=== PATIENT | male | born 1965 | race Caucasian/White ===

== ENCOUNTER → 2016-05-19 | Outpatient (CLI) | payer OTHER ==
[~2016-05-19] MED LIST: ABILIFY IV; ADVIN25/60 INH; ALBUAER2 INH; ARIP1INJ INJ; ASPI81TA28 PO; ATR25 PO; ATV5X; CLR10 PO; ERGO1CAP41 PO; FLUT0.15; FLVHFA44 INH; HYDR-3126 PO; IBUP-1050 PO; LORA-741 PO; MELO7.5T5 PO; ONDA4TAB46 PO; PREG100C PO; PREG1CAP70 PO; TAMS0.4C38 PO; UMEC1AER INH; VNTHFA/IN INH
--- NOTE | 2016-05-19 11:29 | DIAGNOSTIC IMAGING REPORT ---
TESTICULAR ULTRASOUND HISTORY: N50.812 Pain in left [id number] Groin pain COMPARISON: None. FINDINGS: Right testis: 4.0 x 2.4 x 2.7 cm. There are no intratesticular masses. Normal color flow. No hydrocele. The epididymis is unremarkable. There is a 1 cm scrotolith. Left testis: 4.3 x 2.8 x 2.5 cm. There are no intratesticular masses. Normal color flow. No hydrocele. A 2 mm epididymal head cyst. IMPRESSION: 1. Normal bilateral testes. 2. A 1 cm right sided scrotolith. 3. A 2 mm left epididymal head cyst. Electronically signed by: Delon Edge M.D. 05/19/2016 11:28 AM Dictated Date/Time: 05/19/2016 11:26 AM
== END | disposition home or self-care (01) ==
LOC: C.ULTR 10:30
PROVIDERS: ATTEND Internal Medicine
DX: N50.812 Left testicular pain (principal); R10.30 Lower abdominal pain, unspecified

== ENCOUNTER 2016-08-23 14:03 | Emergency (ER) | payer OTHER ==
[~2016-08-23] VITALS: Ht 177.8 cm; Wt 86.2 kg
[~2016-08-23 14:03] MED LIST changes: -ARIP1INJ INJ; -ASPI81TA28 PO; -ATR25 PO; -ATV5X; -ERGO1CAP41 PO; -FLUT0.15; -FLVHFA44 INH; -LORA-741 PO; -MELO7.5T5 PO; -PREG1CAP70 PO; -UMEC1AER INH; -VNTHFA/IN INH
[2016-08-23 14:06] VITALS: TEMP 36.4; Ht 177.8 cm; Wt 86.2 kg
[2016-08-23] MEDS ORDERED: LORAZEPAM 2 MG/ML 1 ML VIAL IV STA (14:18)
[2016-08-23] MEDS ORDERED: ASPIRIN 81 MG CHEW PO STA (14:18)
[2016-08-23 14:44] LABS: BASO ABS # 0.11 K/uL (0-0.2); COMPLETE YES; EOS % 2.1 %; HEMATOCRIT 51.8 % (42-52); IG% 0.2 %; LYMPH % 24.6 %; LYMPH ABS # 2.79 K/uL (1.2-3.4); MEAN CELL VOLUME 91.8 fL (80-100); MEAN CORPUSCULAR HEMOGLOBIN 32.6 pg (25-34); MEAN CORPUSCULAR HGB CONC 35.5 g/dl (32-36); MEAN PLATELET VOLUME 11.6 fL (7.4-10.4); MONO % 4.8 %; NEUT % 67.3 %; PLATELET COUNT 231 K/uL (130-400); RED BLOOD COUNT 5.64 M/uL (4.7-6.1); WHITE BLOOD COUNT 11.36 K/uL (4.8-10.8)
--- NOTE | 2016-08-23 14:47 | DIAGNOSTIC IMAGING REPORT ---
SINGLE VIEW CHEST CLINICAL HISTORY: Atypical chest pain. FINDINGS: An AP, portable, upright chest radiograph is compared to study dated 10/02/2015. The examination is degraded by portable technique and patient rotation. The cardiomediastinal silhouette is unremarkable. Left basilar atelectasis is similar to previous. Chronic interstitial thickening is similar to previous. The lungs and pleural spaces are otherwise clear. No pneumothorax is seen. The bony thorax is grossly intact. A bone island is again noted in the left posterior fifth rib. IMPRESSION: No acute cardiopulmonary abnormality and no significant change from 10/02/2015. Electronically signed by: Joaquin Penaloza M.D. 08/23/2016 2:46 PM Dictated Date/Time: 08/23/2016 2:44 PM
[2016-08-23 14:53] LABS: PARTIAL THROMBOPLASTIN RATIO 1.1; PROTHROMBIN TIME (PATIENT) 10.7 SECONDS (9.0-12.0)
[2016-08-23 15:04] LABS: ALT/SGPT 68 U/L (12-78); AST/SGOT 31 U/L (15-37); BLOOD UREA NITROGEN 6 mg/dl (7-18); CALCIUM 8.8 mg/dl (8.5-10.1); CARBON DIOXIDE 28 mmol/L (21-32); CHLORIDE 106 mmol/L (98-107); GLUCOSE 110 mg/dl (70-99); POTASSIUM 3.6 mmol/L (3.5-5.1); SODIUM 142 mmol/L (136-145)
--- NOTE | 2016-08-23 15:08 | DIAGNOSTIC IMAGING REPORT ---
ULTRASOUND LEFT LOWER EXTREMITY VENOUS CLINICAL HISTORY: Left leg pain. COMPARISON STUDY: No priors. TECHNIQUE: Real-time, grayscale, and color Doppler sonography of the deep veins of the left lower extremity was performed from the inguinal crease to the calf. Compression and augmentation were utilized. FINDINGS: There is no sonographic evidence of deep venous thrombosis identified in the left lower extremity. The common femoral, superficial femoral, and popliteal veins are patent and normally compressible. The greater saphenous vein and the profunda femoris vein at the junction with the common femoral vein are clear. The visualized calf veins are patent. No sonographic abnormality is identified in the left leg at the site of interest specified by the patient. IMPRESSION: 1. There is no sonographic evidence of deep venous thrombosis identified in the left lower extremity. 2. No sonographic abnormality is identified in the left upper leg at the indicated site of interest. Electronically signed by: Joaquin Penaloza M.D. 08/23/2016 3:07 PM Dictated Date/Time: 08/23/2016 3:05 PM
[2016-08-23 15:09] LABS: ALKALINE PHOSPHATASE 105 U/L (45-117); CKMB/CK RATIO 1.2 (0-3.0)
[2016-08-23] MEDS ORDERED: ARIP1INJ INJ (15:15)
[2016-08-23 15:39] VITALS: BP 126/84; PULSE 68; O2SAT 97
--- NOTE | 2016-08-23 19:09 | EMERGENCY ROOM VISIT NOTE ---
History Report prepared by Hugo: Laura Remy Under the Supervision of: Dr. Clive Tran D.O. First contact with patient: 14:10 Chief Complaint: CARDIAC ASSESSMENT Stated Complaint: CHEST TIGHTNESS, LEFT UPPER LEG PAIN, SOB, ANXIETY History of Present Illness The patient is a 51 year old male who presents to the Emergency Room with complaints of an episode of chest pain starting this morning. He currently rates his pain as a 4/10 in severity. The patient states that he started experiencing left leg pain a week ago and it hasn't gotten better. The patient notes that he lays on that side often. He denies having any trauma occur. He complains that it feels swollen. The patient notes a rash on his chest that he states started a week ago and feels sore. He notes that his chest pain does not radiate and that he was afraid to fall asleep last night because he couldn't stop coughing. He reports being short of breath. The patient states that he is also experiencing a higher level of anxiety than normal and has taken medications to help with no relief. He complains of being dizzy as well. The patient notes that he is a schizophrenic. He states that he has not seen anyone else for this today and came to the ED because it seemed to worsen. Source of History: patient Onset: this morning Position: chest Symptom Intensity: 4/10 Timing: other (episode) Associated Symptoms: + SOB, + cough, + rash Note: The patient complains of dizziness, left leg pain and anxiety. Review of Systems See HPI for pertinent positives & negatives. A total of 10 systems reviewed and were otherwise negative. Past Medical & Surgical Medical Problems: (1) Asthma (2) Auditory hallucinations (3) Benzodiazepine withdrawal (4) Cannabis type drug dependence (5) Chronic paranoid schizophrenia (6) Depression with suicidal ideation (7) Fibromyalgia (8) Homicidal ideations (9) Paranoid schizophrenia (10) Rheumatoid arthritis (11) Schizophrenia Surgical Problems: (1) H/O cystoscopy Social History Problems: (1) Bilateral foot pain (2) Constipation (3) Constipation (4) Dehydration (5) Hepatitis C (6) Homicidal ideations (7) Jaw pain (8) Jaw pain (9) Leukocytosis (10) Leukocytosis (11) Vomiting (12) Vomiting (13) Vomiting (14) Vomiting Family History Depression Shiv's chorea Social History Smoking Status: Current Every Day Smoker Alcohol Use: none Drug Use: heroin, marijuana, other Marital Status: single Housing Status: lives with family Occupation Status: disabled Current/Historical Medications Scheduled Albuterol Hfa (Ventolin Hfa), 2 PUFFS INH Q4 Aripiprazole (Abilify Maintena), 400 MG INJ MONTHLY Aspirin (Aspirin Ec), 81 MG PO DAILY Fluticasone Propionate (Flovent Hfa), 2 PUFFS INH BID Fluticasone Propionate (Nasal) (Flonase Allergy Relief), 2 SPRAY NA QAM Hydroxyzine Hcl (Atarax), 10 MG PO QID Loratadine (Claritin), 10 MG PO DAILY Lorazepam (Ativan), 0.5 MG PO BID Pregabalin (Lyrica), 150 MG PO TID Umeclidinium-Vilanterol (Anoro Ellipta 62.5-25 Mcg/INH), 1 PUFF INH DAILY Scheduled PRN Ibuprofen (Advil), 800 MG PO Q4 PRN for Pain Allergies Coded Allergies: Molds & Smuts (Verified Allergy, Intermediate, NASAL STUFFINESS,EYES WATER ,BREATHING GETS WORSE, 08/23/16) POLLEN (Verified Allergy, Intermediate, WATERY EYES,COUGHING,INCREASED REPIRATORY PROBLEMS, 08/23/16) Cat Dander (Verified Allergy, Unknown, unk, 08/23/16) NO KNOWN DRUG ALLERGIES (Verified Allergy, Unknown, ., 08/23/16) Physical Exam Vital Signs Date Time Temp Pulse Resp B/P Pulse Ox O2 Delivery O2 Flow Rate FiO2 08/23/16 15:39 68 18 126/84 97 Room Air 08/23/16 15:26 85 08/23/16 15:19 79 18 114/76 98 Room Air 08/23/16 14:06 36.4 91 20 154/93 95 Room Air Physical Exam GENERAL: Patient is awake, alert, and in no acute distress. Patient is resting comfortably and showing no signs of anxiety EYES: The conjunctivae are clear. The pupils are round and reactive. EARS, NOSE, MOUTH AND THROAT: The nose is without any evidence of any deformity. Mucous membranes are moist tongue is midline NECK: The neck is nontender and supple. RESPIRATORY: Normal respiratory effort is noted there is no evidence of wheezing rhonchi or rales CARDIOVASCULAR: Regular rate and rhythm noted there no murmurs rubs or gallops normal S1 normal S2 GASTROINTESTINAL: The abdomen is soft. Bowel sounds are present in all quadrants. Abdomen is nontender MUSCULOSKELETAL/EXTREMITIES: There is no evidence of gross deformity full range of motion is noted in the hips and shoulders. Tenderness over lateral left thigh. No swelling or ecchymosis noted. ROM is still intact. SKIN: There is no obvious evidence of any rash. There are no petechiae, pallor or cyanosis noted. NEUROLOGIC: Patient is awake alert and oriented x3 strength is symmetric patellar reflexes are 2+ bilaterally Medical Decision & Procedures ER Provider Diagnostic Interpretation: Radiology results as stated below per my review and radiologist interpretation: SINGLE VIEW CHEST CLINICAL HISTORY: Atypical chest pain. FINDINGS: An AP, portable, upright chest radiograph is compared to study dated 10/02/2015. The examination is degraded by portable technique and patient rotation. The cardiomediastinal silhouette is unremarkable. Left basilar atelectasis is similar to previous. Chronic interstitial thickening is similar to previous. The lungs and pleural spaces are otherwise clear. No pneumothorax is seen. The bony thorax is grossly intact. A bone island is again noted in the left posterior fifth rib. IMPRESSION: No acute cardiopulmonary abnormality and no significant change from 10/02/2015. Electronically signed by: Joaquin Penaloza M.D. 08/23/2016 2:46 PM Dictated Date/Time: 08/23/2016 2:44 PM ULTRASOUND LEFT LOWER EXTREMITY VENOUS CLINICAL HISTORY: Left leg pain. COMPARISON STUDY: No priors. TECHNIQUE: Real-time, grayscale, and color Doppler sonography of the deep veins of the left lower extremity was performed from the inguinal crease to the calf. Compression and augmentation were utilized. FINDINGS: There is no sonographic evidence of deep venous thrombosis identified in the left lower extremity. The common femoral, superficial femoral, and popliteal veins are patent and normally compressible. The greater saphenous vein and the profunda femoris vein at the junction with the common femoral vein are clear. The visualized calf veins are patent. No sonographic abnormality is identified in the left leg at the site of interest specified by the patient. IMPRESSION: 1. There is no sonographic evidence of deep venous thrombosis identified in the left lower extremity. 2. No sonographic abnormality is identified in the left upper leg at the indicated site of interest. Electronically signed by: Joaquin Penaloza M.D. 08/23/2016 3:07 PM Dictated Date/Time: 08/23/2016 3:05 PM Laboratory Results 08/23/16 14:20 Red Blood Count 5.64, Mean Corpuscular Volume 91.8, Mean Corpuscular Hemoglobin 32.6, Mean Corpuscular Hemoglobin Concent 35.5, Mean Platelet Volume 11.6, Neutrophils (%) (Auto) 67.3, Lymphocytes (%) (Auto) 24.6, Monocytes (%) (Auto) 4.8, Eosinophils (%) (Auto) 2.1, Basophils (%) (Auto) 1.0, Neutrophils # (Auto) 7.65, Lymphocytes # (Auto) 2.79, Monocytes # (Auto) 0.55, Eosinophils # (Auto) 0.24, Basophils # (Auto) 0.11 08/23/16 14:20 Test 08/23/16 14:20 08/23/16 14:30 White Blood Count 11.36 K/uL (4.8-10.8) Red Blood Count 5.64 M/uL (4.7-6.1) Hemoglobin 18.4 g/dL (14.0-18.0) Hematocrit 51.8 % (42-52) Mean Corpuscular Volume 91.8 fL (80-100) Mean Corpuscular Hemoglobin 32.6 pg (25-34) Mean Corpuscular Hemoglobin Concent 35.5 g/dl (32-36) Platelet Count 231 K/uL (130-400) Mean Platelet Volume 11.6 fL (7.4-10.4) Neutrophils (%) (Auto) 67.3 % Lymphocytes (%) (Auto) 24.6 % Monocytes (%) (Auto) 4.8 % Eosinophils (%) (Auto) 2.1 % Basophils (%) (Auto) 1.0 % Neutrophils # (Auto) 7.65 K/uL (1.4-6.5) Lymphocytes # (Auto) 2.79 K/uL (1.2-3.4) Monocytes # (Auto) 0.55 K/uL (0.11-0.59) Eosinophils # (Auto) 0.24 K/uL (0-0.5) Basophils # (Auto) 0.11 K/uL (0-0.2) RDW Standard Deviation 45.4 fL (36.4-46.3) RDW Coefficient of Variation 13.4 % (11.5-14.5) Immature Granulocyte % (Auto) 0.2 % Immature Granulocyte # (Auto) 0.02 K/uL (0.00-0.02) Prothrombin Time 10.7 SECONDS (9.0-12.0) Prothromb Time International Ratio 1.0 (0.9-1.1) Activated Partial Thromboplast Time 28.3 SECONDS (21.0-31.0) Partial Thromboplastin Ratio 1.1 Anion Gap 8.0 mmol/L (3-11) Est Creatinine Clear Calc Drug Dose 89.2 ml/min Estimated GFR () 99.8 Estimated GFR (Non- 86.2 BUN/Creatinine Ratio 6.0 (10-20) Calcium Level 8.8 mg/dl (8.5-10.1) Total Bilirubin 0.4 mg/dl (0.2-1) Direct Bilirubin < 0.1 mg/dl (0-0.2) Aspartate Amino Transf (AST/SGOT) 31 U/L (15-37) Alanine Aminotransferase (ALT/SGPT) 68 U/L (12-78) Alkaline Phosphatase 105 U/L (45-117) Total Creatine Kinase 82 U/L (39-308) Creatine Kinase MB 1.0 ng/ml (0.5-3.6) Creatine Kinase MB Ratio 1.2 (0-3.0) Troponin I < 0.015 ng/ml (0-0.045) Total Protein 7.6 gm/dl (6.4-8.2) Albumin 3.9 gm/dl (3.4-5.0) Lipase 148 U/L (73-393) Bedside D-Dimer 57 ng/mlFEU (0-450) Laboratory results per my review. Medications Administered Medications (Trade) Dose Ordered Sig/Raeann Route Start Time Stop Time Status Last Admin Dose Admin Aspirin (Aspirin Chew) 324 mg NOW STAT PO 08/23/16 14:18 08/23/16 14:20 DC 08/23/16 14:25 324 MG Lorazepam (Ativan Inj) 1 mg NOW STAT IV 08/23/16 14:18 08/23/16 14:20 DC 08/23/16 14:26 1 MG ECG Indication: SOB/dyspnea Rate (beats per minute): 89 Rhythm: normal sinus Findings: no ectopy, other (no ST abnormalities) Comparison ECG Date: 10/01 Change: no significant change ED Course 1413: The patient was evaluated in room C4. A complete history and physical examination were performed. 1418: Ordered Ativan Inj 1 mg IV, Aspirin 324 mg PO. 1520: Upon reevaluation, the patient is resting comfortably. I discussed results and treatment plan with him. The patient verbalizes agreement and understanding. The patient will be discharged. Medical Decision Differential diagnosis: Etiologies such as cardiac ischemia, aortic dissection, pulmonary embolism, pneumonia, pneumothorax, musculoskeletal, infections, pericarditis, myocarditis , esophageal rupture, gastrointestinal, as well as others were entertained. Medication Reconciliation: I attest that I have personally reviewed the patient' s current medications list. Blood Pressure Screening: Patient was found to have an elevated blood pressure and was referred to their primary doctor for recheck and further treatment. The patient is a 51-year-old male who presented to the emergency department for an evaluation of ongoing chest pain since yesterday. The patient's EKG did not show any acute change from previous. His cardiac biomarkers were negative despite ongoing pain. I discussed patient's laboratory and radiographic studies with him. I also discussed the limitations of the emergency department workup for chest pain with him. He also complained of left leg pain but Doppler did not reveal any signs of venous thromboembolic disease. The patient was encouraged to rest and avoid any strenuous activity. He was encouraged to continue all medications as prescribed and follow-up with his family doctor this week for reevaluation. He was also encouraged to return to the emergency department immediately if symptoms change worsen or the need arises. Impression Primary Impression: Chest pain Additional Impression: Acute anxiety Scribe Attestation The scribe's documentation has been prepared under my direction and personally reviewed by me in its entirety. I confirm that the note above accurately reflects all work, treatment, procedures, and medical decision making performed by me. Departure Information Dispostion Home / Self-Care Referrals Trisha Kerr M.D. (PCP) Forms IMPORTANT VISIT INFORMATION, Work Instructions Patient Instructions My [facility] Additional Instructions Rest and avoid any strenuous activity. Continue all medications as prescribed. Call your family this week to schedule a follow-up appointment. You may require a stress test or further studies to evaluate the cause your symptoms. Return to emergency department immediately if symptoms change worsen or the need arises. Your blood pressure was elevated in the emergency department today. Your blood pressure was mildly elevated in the emergency department today. While this is nonspecific it may require further treatment. Be sure to have your blood pressure rechecked with your family this week. Problem Qualifiers Primary Impression: Chest pain Chest pain type: unspecified Qualified Codes: R07.9 - Chest pain, unspecified
[2017-02-20] MEDS ORDERED: ERGO500011 PO
[2017-02-20] MEDS ORDERED: PREG1CAP70 PO (00:01)
[2017-02-20] MEDS ORDERED: CLR10 PO (00:03)
[2017-02-20] MEDS ORDERED: LORA-741 PO (09:15)
[2017-02-20] MEDS ORDERED: ASPI81TA28 PO (12:17)
[2017-02-20] MEDS ORDERED: FLUT0.15 (12:58)
[2017-02-20] MEDS ORDERED: UMEC1AER INH (15:15)
[2017-02-20] MEDS ORDERED: FLVHFA44 INH (15:15)
[2017-02-20] MEDS ORDERED: VNTHFA/IN INH (15:16)
== END 2016-08-23 15:48 | disposition home or self-care (01) ==
LOC: C.EDB 14:05 → C.EDC 15:48
DX: R07.9 Chest pain, unspecified (principal); F41.9 Anxiety disorder, unspecified; F32.9 Major depressive disorder, single episode, unspecified; M06.9 Rheumatoid arthritis, unspecified; F20.9 Schizophrenia, unspecified; B19.20 Unspecified viral hepatitis C without hepatic coma; J45.909 Unspecified asthma, uncomplicated; F17.200 Nicotine dependence, unspecified, uncomplicated; Z79.82 Long term (current) use of aspirin; Z79.899 Other long term (current) drug therapy; Z91.09 Other allergy status, other than to drugs and biological substances; Z81.8 Family history of other mental and behavioral disorders; Z84.89 Family history of other specified conditions

== ENCOUNTER → 2016-09-26 | Outpatient (CLI) | payer OTHER ==
[~2016-09-26] MED LIST changes: -ABILIFY IV; -ADVIN25/60 INH; -ALBUAER2 INH; +ARIP1INJ INJ; +ASPI81TA28 PO; +ATR25 PO; +ATV5X; +ERGO1CAP41 PO; +FLUT0.15; +FLVHFA44 INH; +LORA-741 PO; +MELO7.5T5 PO; -ONDA4TAB46 PO; +PREG1CAP70 PO; -TAMS0.4C38 PO; +UMEC1AER INH; +VNTHFA/IN INH
[2016-09-26 12:33] LABS: BASO % 0.8 %; BASO ABS # 0.07 K/uL (0-0.2); COMPLETE YES; EOS % 3.7 %; HEMATOCRIT 50.2 % (42-52); IG% 0.2 %; LYMPH % 31.7 %; LYMPH ABS # 2.65 K/uL (1.2-3.4); MEAN CELL VOLUME 92.6 fL (80-100); MEAN CORPUSCULAR HEMOGLOBIN 31.7 pg (25-34); MEAN CORPUSCULAR HGB CONC 34.3 g/dl (32-36); MEAN PLATELET VOLUME 12.1 fL (7.4-10.4); MONO % 5.1 %; NEUT % 58.5 %; PLATELET COUNT 224 K/uL (130-400); RED BLOOD COUNT 5.42 M/uL (4.7-6.1); WHITE BLOOD COUNT 8.37 K/uL (4.8-10.8)
[2016-09-26 12:54] LABS: ESTIMATED AVERAGE GLUCOSE 117 mg/dl; HA1C FLAG Normal (Normal)
[2016-09-26 12:57] LABS: ALT/SGPT 78 U/L (12-78); BLOOD UREA NITROGEN 5 mg/dl (7-18); BUN/CREATININE RATIO 4.8 (10-20); CALCIUM 9.6 mg/dl (8.5-10.1); CARBON DIOXIDE 30 mmol/L (21-32); CHLORIDE 108 mmol/L (98-107); CHOLESTEROL 141 mg/dl (0-200); CREATININE 0.94 mg/dl (0.60-1.40); GLUCOSE 89 mg/dl (70-99); POTASSIUM 4.6 mmol/L (3.5-5.1); SODIUM 142 mmol/L (136-145); TRIGLYCERIDES 124 mg/dl (0-150); VERY LOW DENSITY LIPOPROT CALC 25 mg/dl
[2016-09-26 13:05] LABS: ALB/GLOB RATIO 1.1 (0.9-2); ALKALINE PHOSPHATASE 93 U/L (45-117); AST/SGOT 41 U/L (15-37); CHOLESTEROL/HDL RATIO 3.1; HDL CHOLESTEROL 46 mg/dl; LDL CHOLESTEROL CALCULATED 70 mg/dl; THYROID STIMULATING HORMONE 0.407 uIu/ml (0.300-4.500)
== END | disposition home or self-care (01) ==
LOC: C.LABBFT 10:42
PROVIDERS: ATTEND Urology
DX: Z79.899 Other long term (current) drug therapy (principal); Z12.5 Encounter for screening for malignant neoplasm of prostate; G89.4 Chronic pain syndrome; M19.90 Unspecified osteoarthritis, unspecified site; B18.2 Chronic viral hepatitis C; E55.9 Vitamin D deficiency, unspecified

== ENCOUNTER 2016-10-25 23:18 | Emergency (ER) | payer OTHER ==
[~2016-10-25] VITALS: Ht 177.8 cm; Wt 88.1 kg
[~2016-10-25 23:18] MED LIST changes: -ATR25 PO; -ATV5X; -ERGO1CAP41 PO; -MELO7.5T5 PO; -PREG1CAP70 PO
[2016-10-25 23:23] VITALS: TEMP 36.6; Ht 177.8 cm; Wt 88.1 kg
[2016-10-25] MEDS ORDERED: LORAZEPAM 1 MG TAB PO STA (23:38)
[2016-10-25] MEDS ORDERED: MELO7.5T5 PO (23:57)
[2016-10-25] MEDS ORDERED: ATV5X (23:58)
[2016-10-26] MEDS ORDERED: ERGO1CAP41 PO
[2016-10-26] MEDS ORDERED: PREG1CAP70 PO (00:01)
[2016-10-26] MEDS ORDERED: ATR25 PO (00:02)
[2016-10-26] MEDS ORDERED: CLR10 PO (00:03)
[2016-10-26] MEDS ORDERED: RISPERIDONE 1 MG TAB PO STA (00:26)
--- NOTE | 2016-10-26 01:37 | EMERGENCY ROOM VISIT NOTE ---
History Report prepared by Hugo: Adelso Navarrete Under the Supervision of: Dr. John Arroyo D.O. First contact with patient: 23:33 Chief Complaint: PSYCHIATRIC PROBLEMS Stated Complaint: MENTAL HEALTH EVAL History of Present Illness The patient is a 51 year old male who presents to the Emergency Room with complaints of persistent psychiatric problems beginning today. His problems include anxiety and "delusions". He states that he has been having delusions of grandeur for the past hour and states "I think the world believes I'm a god". The patient has taken Ativan for his anxiety. He denies feeling suicidal or homicidal. He denies taking increased dosage of his medications. The patient is on Abilify and is scheduled for his next injection next week. Source of History: patient Onset: Today Quality: other (psychiatric problems) Timing: other (persistent) Review of Systems See HPI for pertinent positives and negatives. A total of ten systems were reviewed and were otherwise negative. Past Medical & Surgical Medical Problems: (1) Asthma (2) Auditory hallucinations (3) Benzodiazepine withdrawal (4) Cannabis type drug dependence (5) Chronic paranoid schizophrenia (6) Depression with suicidal ideation (7) Fibromyalgia (8) Homicidal ideations (9) Paranoid schizophrenia (10) Rheumatoid arthritis (11) Schizophrenia Surgical Problems: (1) H/O cystoscopy Social History Problems: (1) Bilateral foot pain (2) Constipation (3) Constipation (4) Dehydration (5) Hepatitis C (6) Homicidal ideations (7) Jaw pain (8) Jaw pain (9) Leukocytosis (10) Leukocytosis (11) Vomiting (12) Vomiting (13) Vomiting (14) Vomiting Family History Depression [place]'s chorea Social History Smoking Status: Current Every Day Smoker Alcohol Use: none Drug Use: heroin, marijuana, other Marital Status: single Housing Status: lives with family Occupation Status: disabled Current/Historical Medications Scheduled Aripiprazole (Abilify Maintena), 400 MG INJ MONTHLY Aspirin (Aspirin Ec), 81 MG PO DAILY Ergocalciferol (Vitamin D 16193 Unit), 50,000 UNIT PO WK Fluticasone Propionate (Flovent Hfa), 1 PUFFS INH BID Fluticasone Propionate (Nasal) (Flonase Allergy Relief), 2 SPRAY NA QAM Meloxicam (Mobic), 7.5 MG PO DAILY Pregabalin (Lyrica), 150 MG PO TID Umeclidinium-Vilanterol (Anoro Ellipta 62.5-25 Mcg/INH), 1 PUFF INH DAILY Scheduled PRN Albuterol Hfa (Ventolin Hfa), 2 PUFFS INH Q4 PRN for SOB/Wheezing Hydroxyzine HCl (Hydroxyzine HCl), 25 MG PO TID PRN for Anxiety Loratadine (Claritin), 10 MG PO DAILY PRN for allergies Lorazepam (Ativan), 0.5 MG PO AMHS PRN for Anxiety Allergies Coded Allergies: Molds & Smuts (Verified Allergy, Intermediate, NASAL STUFFINESS,EYES WATER ,BREATHING GETS WORSE, 10/25/16) POLLEN (Verified Allergy, Intermediate, WATERY EYES,COUGHING,INCREASED REPIRATORY PROBLEMS, 10/25/16) Cat Dander (Verified Allergy, Unknown, unk, 10/25/16) NO KNOWN DRUG ALLERGIES (Verified Allergy, Unknown, ., 10/25/16) Physical Exam Vital Signs Date Time Temp Pulse Resp B/P (MAP) Pulse Ox O2 Delivery O2 Flow Rate FiO2 10/25/16 23:23 36.6 78 18 166/91 94 Room Air Physical Exam GENERAL: Awake, alert, well-appearing, in no distress HENT: Normocephalic, atraumatic. Oropharynx unremarkable. EYES: Normal conjunctiva. Sclera non-icteric. NECK: Supple. No nuchal rigidity. FROM. No JVD. RESPIRATORY: Clear to auscultation. CARDIAC: Regular rate, normal rhythm. Extremities warm and well perfused. Pulses equal. ABDOMEN: Soft, non-distended. No tenderness to palpation. No rebound or guarding. No masses. RECTAL: Deferred. MUSCULOSKELETAL: Chest examination reveals no tenderness. The back is symmetrical on inspection without obvious abnormality. There is no CVA tenderness to palpation. No joint edema. LOWER EXTREMITIES: Calves are equal size bilaterally and non-tender. No edema. No discoloration. NEURO: Normal sensorium. No sensory or motor deficits noted. SKIN: No rash or jaundice noted. PSYCH: Anxious. Delusional. Not suicidal. Medical Decision & Procedures Medications Administered Medications (Trade) Dose Ordered Sig/Raeann Route Start Time Stop Time Status Last Admin Dose Admin Lorazepam (Ativan Tab) 1 mg NOW STAT PO 10/25/16 23:38 10/25/16 23:39 DC 10/25/16 23:45 1 MG Risperidone (Risperdal Tab) 1 mg NOW STAT PO 10/26/16 00:26 10/26/16 00:27 DC 10/26/16 00:30 1 MG ED Course 2335: The patient was evaluated in room A7. A complete history and physical exam was performed. 2338: Ordered Ativan Tab 1 mg PO. 0026: Ordered Risperdal Tab 1 mg PO. 0135: I reevaluated the patient. Discussed results and discharge instructions: he verbalized understanding and agreement. The patient is ready for discharge. Medical Decision Differential diagnosis: Etiologies such as mood disorder, infection, hypoglycemia, electrolyte abnormalities, cardiac sources, intracerebral event, toxicologic, neurologic, as well as others were entertained. Patient resting in no distress patient was treated for his anxiety is much improved. Patient has no suicidal or homicidal ideations at this time is stable for discharge Impression Primary Impression: Anxiety Scribe Attestation The scribe's documentation has been prepared under my direction and personally reviewed by me in its entirety. I confirm that the note above accurately reflects all work, treatment, procedures, and medical decision making performed by me. Departure Information Dispostion Home / Self-Care Referrals Trisha Kerr M.D. (PCP) Patient Instructions Anxiety Disorder, My [facility]
[2016-10-26 01:45] VITALS: BP 151/85; PULSE 72; O2SAT 96
[2016-10-26] MEDS ORDERED: OLANZAPINE 10 MG TAB PO SCH (21:00)
== END 2016-10-26 01:46 | disposition home or self-care (01) ==
LOC: C.EDB 23:19 → C.EDA 10-26 01:46
DX: F41.9 Anxiety disorder, unspecified (principal); J45.909 Unspecified asthma, uncomplicated; F32.9 Major depressive disorder, single episode, unspecified; F20.9 Schizophrenia, unspecified; M06.9 Rheumatoid arthritis, unspecified; B19.20 Unspecified viral hepatitis C without hepatic coma; F17.200 Nicotine dependence, unspecified, uncomplicated; Z79.82 Long term (current) use of aspirin; Z79.899 Other long term (current) drug therapy; Z91.09 Other allergy status, other than to drugs and biological substances; Z81.8 Family history of other mental and behavioral disorders

== ENCOUNTER → 2016-12-23 | Outpatient (CLI) | payer OTHER ==
[~2016-12-23] MED LIST changes: +ATR25 PO; +ERGO1CAP41 PO; -HYDR-3126 PO; -IBUP-1050 PO; +MELO7.5T5 PO; -PREG100C PO; +PREG1CAP70 PO
--- NOTE | 2016-12-23 09:54 | DIAGNOSTIC IMAGING REPORT ---
R HAND MIN 3 VIEWS ROUTINE HISTORY: 51 years-old Male CHRONIC PAIN SYNDROM, POLYARTHRALGIA chronic right hand pain without reported trauma. COMPARISON: None available TECHNIQUE: 3 views of the right hand FINDINGS: Mild periarticular osteopenia is noted. There is minimal marginal spurring and joint space narrowing throughout the interphalangeal joints. Mild first carpometacarpal osteoarthritis is noted. No acute fracture, dislocation or erosive arthropathy. Soft tissues are unremarkable. IMPRESSION: 1. No acute fracture or dislocation. 2. Mild periarticular osteopenia with minimal interphalangeal degenerative changes. The above report was generated using voice recognition software. It may contain grammatical, syntax or spelling errors. Electronically signed by: Veto Francis M.D. 12/23/2016 9:52 AM Dictated Date/Time: 12/23/2016 9:46 AM
== END | disposition home or self-care (01) ==
LOC: C.RAD1850 09:17
PROVIDERS: ATTEND Internal Medicine Rheumatology
DX: G89.4 Chronic pain syndrome (principal); M25.50 Pain in unspecified joint

== ENCOUNTER → 2017-01-01 | Outpatient (CLI) | payer OTHER ==
--- NOTE | 2017-01-01 14:42 | DIAGNOSTIC IMAGING REPORT ---
BONE SCAN WHOLE BODY CLINICAL HISTORY: 51 years-old Male presenting with G89.4 Chronic pain [id number]. TECHNIQUE: Planar anterior and posterior whole body imaging was performed 3 hours following the intravenous administration of radiotracer. Radiotracer: 21.2 mCi Tc-99m MDP. COMPARISON: Plain radiographs of the right hand from 12/23/2016. FINDINGS: Focal radiotracer activity noted in the region of the left antecubital fossa from injection with bob uptake. Expected distribution in the kidneys and urinary bladder. Mild focal linear uptake noted along the proximal right tibia. Mild periarticular uptake noted bilaterally at the knees. Otherwise normal radiotracer uptake throughout the axial and appendicular skeleton. IMPRESSION: 1. Mild periarticular uptake at the knees could be degenerative in etiology. 2. Mild increased uptake along the anterolateral right tibia could relate to periosteal reaction, possibly associated with muscle strain along a muscle insertion site. Correlate with point tenderness. Electronically signed by: Joe Morales M.D. 01/01/2017 2:40 PM Dictated Date/Time: 01/01/2017 11:39 AM
== END | disposition home or self-care (01) ==
LOC: C.NUCL 07:36
PROVIDERS: ATTEND Internal Medicine Rheumatology
DX: G89.4 Chronic pain syndrome (principal); M25.50 Pain in unspecified joint

== ENCOUNTER 2017-02-20 16:09 | Emergency (ER) | payer OTHER ==
[~2017-02-20] VITALS: Ht 175.3 cm; Wt 90.7 kg
[~2017-02-20 16:09] MED LIST changes: -ERGO1CAP41 PO; +ERGO500011 PO
[2017-02-20 16:12] VITALS: TEMP 36.6; Ht 175.3 cm; Wt 90.7 kg
[2017-02-20] MEDS ORDERED: IBUPROFEN 800 MG TAB PO STA (16:43)
[2017-02-20] MEDS ORDERED: ALBUT/IPRATROP 3MG/0.5MG NEB 3 ML VIAL INH ONE (16:45)
[2017-02-20] MEDS ORDERED: AZITHROMYCIN 250 MG TAB PO ONE (16:45)
--- NOTE | 2017-02-20 17:01 | EMERGENCY ROOM VISIT NOTE ---
History Report prepared by Hugo: Abbey Ha Under the Supervision of: Dr. Jason Mendez M.D. First contact with patient: 16:39 Chief Complaint: ILLNESS Stated Complaint: PHEUMONIA History of Present Illness The patient is a 52 year old male who presents to the Emergency Room with complaints of a constant illness beginning yesterday. The patient states that he has been having chills and feeling ill for a few days ago but his symptoms have worsened progressively since yesterday. He reports that he has been feeling more short of breath since yesterday but notes that shortness of breath is not unusual and he smokes 2 packs of cigarettes a day. He notes that he has nausea, sore throat, chest tightness, productive brown cough, and diarrhea yesterday. The patient denies any sick contacts, vomiting, fever, cough, constipation, abdominal pain, and urinary symptoms. He states that he has tried using an inhaler without any relief. Source of History: patient Onset: 2 days ago Position: other (global) Quality: other (illness) Timing: constant Associated Symptoms: + chills, + sorethroat, + cough, + SOB, + nausea, + fatigue, No fevers, No vomiting, No abdominal pain, No diarrhea, No urinary symptoms Review of Systems See HPI for pertinent positives and negatives. A total of ten systems were reviewed and were otherwise negative. Past Medical & Surgical Medical Problems: (1) Asthma (2) Auditory hallucinations (3) Benzodiazepine withdrawal (4) Cannabis type drug dependence (5) Chronic paranoid schizophrenia (6) Depression with suicidal ideation (7) Fibromyalgia (8) Homicidal ideations (9) Paranoid schizophrenia (10) Rheumatoid arthritis (11) Schizophrenia Surgical Problems: (1) H/O cystoscopy Social History Problems: (1) Bilateral foot pain (2) Constipation (3) Constipation (4) Dehydration (5) Hepatitis C (6) Homicidal ideations (7) Jaw pain (8) Jaw pain (9) Leukocytosis (10) Leukocytosis (11) Vomiting (12) Vomiting (13) Vomiting (14) Vomiting Family History Depression Hutington's chorea Social History Smoking Status: Never Smoker Alcohol Use: none Drug Use: heroin, marijuana, other Marital Status: single Housing Status: lives with family Occupation Status: disabled Current/Historical Medications Scheduled Aripiprazole (Abilifel Maintena), 400 MG INJ [id number] Aspirin (Aspirin Ec), 81 MG PO DAILY Azithromycin (Zithromax), 250 MG PO DAILY Ergocalciferol (Vitamin D 28080 Unit), 50,000 UNIT PO WK Fluticasone Propionate (Flovent Hfa), 1 PUFFS INH BID Fluticasone Propionate (Nasal) (Flonase Allergy Relief), 2 SPRAY NA QAM Prednisone (Prednisone), 3 TAB PO DAILY Pregabalin (Lyrica), 150 MG PO TID Tiotropium [place] (Spiriva Respimat), 2 PUFF INH DAILY Umeclidinium-Vilanterol (Anoro Ellipta 62.5-25 Mcg/INH), 1 PUFF INH DAILY Scheduled PRN Albuterol (Ventolin Hfa), 2 PUFFS INH QID PRN for Cough Albuterol Hfa (Ventolin Hfa), 2 PUFFS INH Q4 PRN for SOB/Wheezing Loratadine (Claritin), 10 MG PO DAILY PRN for allergies Lorazepam (Ativan), 0.5 MG PO AMHS PRN for Anxiety Allergies Coded Allergies: Molds & Smuts (Verified Allergy, Intermediate, NASAL STUFFINESS,EYES WATER ,BREATHING GETS WORSE, 10/25/16) POLLEN (Verified Allergy, Intermediate, WATERY EYES,COUGHING,INCREASED REPIRATORY PROBLEMS, 10/25/16) Cat Dander (Verified Allergy, Unknown, unk, 10/25/16) NO KNOWN DRUG ALLERGIES (Verified Allergy, Unknown, ., 10/25/16) Physical Exam Vital Signs Date Time Temp Pulse Resp B/P (MAP) Pulse Ox O2 Delivery O2 Flow Rate FiO2 02/20/17 20:02 66 18 122/77 98 02/20/17 18:37 79 18 117/70 97 Room Air 02/20/17 18:09 71 02/20/17 17:56 67 18 96 Room Air 02/20/17 16:12 36.6 77 18 143/92 96 Room Air Physical Exam GENERAL: Awake, alert, fatigued-appearing, in no distress HENT: Normocephalic, atraumatic. Dry mucous membranes. Mild injection in posterior oropharynx. EYES: Normal conjunctiva. Sclera non-icteric. NECK: Supple. No nuchal rigidity. FROM. No JVD. RESPIRATORY: Scant scattered wheezes but otherwise clear. CARDIAC: Regular rate, normal rhythm. Extremities warm and well perfused. Pulses equal. ABDOMEN: Soft, non-distended. No tenderness to palpation. No rebound or guarding. No masses. RECTAL: Deferred. MUSCULOSKELETAL: Chest examination reveals no tenderness. The back is symmetrical on inspection without obvious abnormality. There is no CVA tenderness to palpation. No joint edema. LOWER EXTREMITIES: Calves are equal size bilaterally and non-tender. No edema. No discoloration. NEURO: Normal sensorium. No sensory or motor deficits noted. SKIN: No rash or jaundice noted. Medical Decision & Procedures ER Provider Diagnostic Interpretation: X-ray: Per my interpretation, radiologist review. CHEST ONE VIEW PORTABLE FINDINGS: The right lung remains clear. Stable linear density at the left lung base which favors atelectasis or scarring. No new focal lung consolidations. No pleural effusions. No pneumothorax. The heart is normal in size. There is a bone island seen within the left posterior fifth rib, unchanged. IMPRESSION: No significant change compared to the prior study. No acute process. Electronically signed by: Delon Edge M.D. 02/20/2017 5:51 PM Dictated Date/Time: 02/20/2017 5:50 PM Laboratory Results 02/20/17 17:10 Red Blood Count 5.75, Mean Corpuscular Volume 91.1, Mean Corpuscular Hemoglobin 32.2, Mean Corpuscular Hemoglobin Concent 35.3, Mean Platelet Volume 11.8, Neutrophils (%) (Auto) 65.0, Lymphocytes (%) (Auto) 27.0, Monocytes (%) (Auto) 5.3, Eosinophils (%) (Auto) 1.3, Basophils (%) (Auto) 1.0, Neutrophils # (Auto) 6.83, Lymphocytes # (Auto) 2.83, Monocytes # (Auto) 0.56, Eosinophils # (Auto) 0.14, Basophils # (Auto) 0.10 02/20/17 17:10 Test 02/20/17 17:10 02/20/17 17:30 White Blood Count 10.50 K/uL (4.8-10.8) Red Blood Count 5.75 M/uL (4.7-6.1) Hemoglobin 18.5 g/dL (14.0-18.0) Hematocrit 52.4 % (42-52) Mean Corpuscular Volume 91.1 fL (80-100) Mean Corpuscular Hemoglobin 32.2 pg (25-34) Mean Corpuscular Hemoglobin Concent 35.3 g/dl (32-36) Platelet Count 232 K/uL (130-400) Mean Platelet Volume 11.8 fL (7.4-10.4) Neutrophils (%) (Auto) 65.0 % Lymphocytes (%) (Auto) 27.0 % Monocytes (%) (Auto) 5.3 % Eosinophils (%) (Auto) 1.3 % Basophils (%) (Auto) 1.0 % Neutrophils # (Auto) 6.83 K/uL (1.4-6.5) Lymphocytes # (Auto) 2.83 K/uL (1.2-3.4) Monocytes # (Auto) 0.56 K/uL (0.11-0.59) Eosinophils # (Auto) 0.14 K/uL (0-0.5) Basophils # (Auto) 0.10 K/uL (0-0.2) RDW Standard Deviation 44.6 fL (36.4-46.3) RDW Coefficient of Variation 13.4 % (11.5-14.5) Immature Granulocyte % (Auto) 0.4 % Immature Granulocyte # (Auto) 0.04 K/uL (0.00-0.02) Anion Gap 6.0 mmol/L (3-11) Est Creatinine Clear Calc Drug Dose 96.1 ml/min Estimated GFR () 100.4 Estimated GFR (Non- 86.6 BUN/Creatinine Ratio 5.8 (10-20) Calcium Level 9.2 mg/dl (8.5-10.1) Total Bilirubin 0.3 mg/dl (0.2-1) Direct Bilirubin mg/dl (0-0.2) Aspartate Amino Transf (AST/SGOT) 36 U/L (15-37) Alanine Aminotransferase (ALT/SGPT) 67 U/L (12-78) Alkaline Phosphatase 97 U/L (45-117) Troponin I < 0.015 ng/ml (0-0.045) Total Protein 7.7 gm/dl (6.4-8.2) Albumin 3.9 gm/dl (3.4-5.0) Lipase 122 U/L (73-393) Chemistry Specimen Hemolysis Influenza Type A (RT-PCR) Neg for Influ A (NEG) Influenza Type A Antigen Neg for Influ A (NEG) Influenza Type B Antigen Neg for Influ B (NEG) Influenza Type B (RT-PCR) Neg for Influ B (NEG) Laboratory results reviewed by me Medications Administered Medications (Trade) Dose Ordered Sig/Raeann Route Start Time Stop Time Status Last Admin Dose Admin Albuterol/ Ipratropium (Duoneb) 12 ml ONE ONCE INH 02/20/17 16:45 02/20/17 16:50 DC 02/20/17 17:55 12 ML Prednisone (PredniSONE TAB) 60 mg NOW STAT PO 02/20/17 16:43 02/20/17 16:50 DC 02/20/17 17:39 60 MG Azithromycin (Zithromax Tab) 500 mg NOW ONCE PO 02/20/17 16:45 02/20/17 16:50 DC 02/20/17 17:40 500 MG Ibuprofen (Motrin Tab) 800 mg NOW STAT PO 02/20/17 16:43 02/20/17 16:50 DC 02/20/17 17:39 800 MG Lactated Ringer's 1,000 ml @ 999 mls/hr Q1H1M STAT IV 02/20/17 17:05 02/20/17 18:05 DC 02/20/17 17:39 999 MLS/HR ECG Indication: SOB/dyspnea Rate (beats per minute): 66 Rhythm: normal sinus Findings: no acute ischemic change, other (nomal axis) ED Course 1639: The patient was evaluated in room B5. A complete history and physical exam was performed. 1643: Motrin Tab 800mg PO, Prednisone 60mg PO. 1645: Zithromax Tab 500mg PO, Duoneb 12ml INH. 1705: Lactated Ringer's 1000ml @ 999mls/hr IV. 194: Albuterol 2 puffs INH. 194: I reevaluated the patient. Discussed results and discharge instructions: He verbalized understanding and agreement. The patient is ready for discharge. Medical Decision I reviewed the patient's past medical history, medications, and the nursing notes as described above. The patient's presentation and history were concerning for pneumonia, bronchitis , COPD exacerbation, ACS, CHF, PE. The patient is a 52 y/o gentleman with a pmhx of asthma and 2ppd smoking who presents to the ED with worsening SOB over the past several days per HPI. On arrival the patient is in NAD, AFVSS. On exam has scant scattered wheezes. EKG unremarkable. Trop negative. WBC wnl. CXR negative for PNA. Given brown sputum patient treated with azithro in addition to prednisone and continuous neb. Patient feeling improved subsequently. Plan for pcp f/u. Findings and plan for follow-up reviewed with patient. Patient agreeable and d/c'd per discharge instructions. Medication Reconcilliation Current Medication List: was personally reviewed by me Blood Pressure Screening Patient's blood pressure: Elevated blood pressure Blood pressure disposition: Elevated BP felt to be situational Impression Primary Impression: Bronchitis Scribe Attestation The scribe's documentation has been prepared under my direction and personally reviewed by me in its entirety. I confirm that the note above accurately reflects all work, treatment, procedures, and medical decision making performed by me. Departure Information Dispostion Home / Self-Care Prescriptions Albuterol (Ventolin Hfa) 60 Puffs/5400 Mcg Aers 2 PUFFS INH QID Y for Cough, #1 INHALER Prov: Jason Mendez M.D. 02/20/17 Azithromycin (Zithromax) 250 Mg Tab 250 MG PO DAILY, #4 TAB Prov: Jason Mendez M.D. 02/20/17 Prednisone (Prednisone) 20 Mg Tab 3 TAB PO DAILY for 4 Days, #12 TAB FOR 4 DAYS Prov: Jason Mendez M.D. 02/20/17 Referrals Trisha Kerr M.D. (PCP) Patient Instructions ED Bronchitis Asthmatic, My [facility] Additional Instructions Please follow up with your primary care physician in the next 1-3 days for re- evaluation. You likely have a bronchitis. Otherwise, your exam, EKG, chest xray, and lab results did not show signs of an emergent condition at this time. Prednisone and Azithromycin as directed. Albuterol 2 puffs every 4 hours for the next 48 hours and then as needed thereafter. Return to the emergency department for worsening symptoms as described in the accompanying instructions.
[2017-02-20] MEDS ORDERED: LACTATED RINGER'S 1000ML 1,000 ML IV STA (17:05)
[2017-02-20 17:22] LABS: COMPLETE YES; EOS % 1.3 %; HEMATOCRIT 52.4 % (42-52); IG% 0.4 %; LYMPH ABS # 2.83 K/uL (1.2-3.4); MEAN CELL VOLUME 91.1 fL (80-100); MEAN CORPUSCULAR HEMOGLOBIN 32.2 pg (25-34); MEAN CORPUSCULAR HGB CONC 35.3 g/dl (32-36); MEAN PLATELET VOLUME 11.8 fL (7.4-10.4); MONO % 5.3 %; PLATELET COUNT 232 K/uL (130-400); RED BLOOD COUNT 5.75 M/uL (4.7-6.1)
[2017-02-20] MEDS ORDERED: TIOT1SPR INH (17:33)
--- NOTE | 2017-02-20 17:52 | DIAGNOSTIC IMAGING REPORT ---
CHEST ONE VIEW PORTABLE HISTORY: Atypical CHEST PAIN COMPARISON: Chest 08/23/2016. FINDINGS: The right lung remains clear. Stable linear density at the left lung base which favors atelectasis or scarring. No new focal lung consolidations. No pleural effusions. No pneumothorax. The heart is normal in size. There is a bone island seen within the left posterior fifth rib, unchanged. IMPRESSION: No significant change compared to the prior study. No acute process. Electronically signed by: Delon Edge M.D. 02/20/2017 5:51 PM Dictated Date/Time: 02/20/2017 5:50 PM
[2017-02-20 17:56] VITALS: PULSE 67; O2SAT 96
[2017-02-20 18:30] LABS: ALKALINE PHOSPHATASE 97 U/L (45-117); ALT/SGPT 67 U/L (12-78); AST/SGOT 36 U/L (15-37); BLOOD UREA NITROGEN 6 mg/dl (7-18); BUN/CREATININE RATIO 5.8 (10-20); CALCIUM 9.2 mg/dl (8.5-10.1); CARBON DIOXIDE 26 mmol/L (21-32); CHLORIDE 107 mmol/L (98-107); CREATININE 0.99 mg/dl (0.60-1.40); GLUCOSE 98 mg/dl (70-99); POTASSIUM 3.7 mmol/L (3.5-5.1); SODIUM 139 mmol/L (136-145)
[2017-02-20 19:08] LABS: INFLUENZA A PCR Neg for Influ A (NEG); INFLUENZA B PCR Neg for Influ B (NEG)
[2017-02-20] MEDS ORDERED: PRED20TA PO (19:40)
[2017-02-20] MEDS ORDERED: AZIT250T PO (19:40)
[2017-02-20] MEDS ORDERED: PRVHFAIN INH (19:40)
[2017-02-20] MEDS ORDERED: ALBUTEROL HFA 8 GM INHALER INH STA (19:41)
[2017-02-20 20:02] VITALS: BP 122/77; PULSE 66; O2SAT 98
== END 2017-02-20 20:03 | disposition home or self-care (01) ==
LOC: C.EDB 16:11
DX: J40 Bronchitis, not specified as acute or chronic (principal); J45.909 Unspecified asthma, uncomplicated; F32.9 Major depressive disorder, single episode, unspecified; F20.9 Schizophrenia, unspecified; M06.9 Rheumatoid arthritis, unspecified; B19.20 Unspecified viral hepatitis C without hepatic coma; Z79.82 Long term (current) use of aspirin; Z79.899 Other long term (current) drug therapy; Z98.890 Other specified postprocedural states; Z91.09 Other allergy status, other than to drugs and biological substances; Z81.8 Family history of other mental and behavioral disorders

== ENCOUNTER 2017-07-28 06:40 | Emergency (ER) | payer OTHER ==
[~2017-07-28] VITALS: Ht 175.3 cm; Wt 92.1 kg
[~2017-07-28 06:40] MED LIST changes: -ATR25 PO; +AZIT250T PO; -MELO7.5T5 PO; +PRVHFAIN INH; +TIOT1SPR INH
[2017-07-28 06:43] VITALS: TEMP 36.6; Ht 175.3 cm; Wt 92.1 kg
[2017-07-28] MEDS ORDERED: LORAZEPAM 1 MG TAB PO STA (06:55)
[2017-07-28] MEDS ORDERED: CHOL20007 PO (07:00)
--- NOTE | 2017-07-28 07:04 | EMERGENCY ROOM VISIT NOTE ---
History Report prepared by Hugo: Adelso Navarrete Under the Supervision of: Dr. Tae Joe M.D. First contact with patient: 06:47 Chief Complaint: ANXIETY Stated Complaint: ANXIETY,SHORTNESS OF BREATH History of Present Illness The patient is a 52 year old white male with a past medical history of asthma, hepatitis C, paranoid schizophrenia, depression, fibromyalgia, and rheumatoid arthritis who presents to the ED with a cc of intermittent "panic attacks" beginning 1-2 years ago. Positive SOB and body aches. His symptoms worsened within the past month. Patient was switched from Abilify to Invega about two months ago and feels this is related to his worsening of symptoms. Negative cough, abdominal pain, or chest pain. The patient is a smoker (a few packs a day ). His anxiety worsens when he does not smoke. Source of History: patient Onset: 1-2 years ago Quality: other ("panic attacks") Timing: intermittent Modifying Factors (Worsening): other (not smoking) Associated Symptoms: + SOB, No cough, No chest pain, No abdominal pain Note: Positive: body aches. Review of Systems See HPI for pertinent positives and negatives. A total of ten systems were reviewed and were otherwise negative. Past Medical & Surgical Medical Problems: (1) Asthma (2) Auditory hallucinations (3) Benzodiazepine withdrawal (4) Cannabis type drug dependence (5) Chronic paranoid schizophrenia (6) Depression with suicidal ideation (7) Fibromyalgia (8) Homicidal ideations (9) Paranoid schizophrenia (10) Rheumatoid arthritis (11) Schizophrenia Surgical Problems: (1) H/O cystoscopy Social History Problems: (1) Bilateral foot pain (2) Constipation (3) Constipation (4) Dehydration (5) Hepatitis C (6) Homicidal ideations (7) Jaw pain (8) Jaw pain (9) Leukocytosis (10) Leukocytosis (11) Vomiting (12) Vomiting (13) Vomiting (14) Vomiting Family History Depression H[place]'s chorea Social History Smoking Status: Current Every Day Smoker Alcohol Use: none Drug Use: heroin, marijuana, other Marital Status: single Housing Status: lives with family Occupation Status: disabled Current/Historical Medications Scheduled Aspirin (Aspirin Ec), 81 MG PO DAILY Cholecalciferol (Vitamin D3), 4,000 UNITS PO DAILY Fluticasone Prop/Salmeterol (Advair Diskus 250/50 60 Dose), 1 PUFF INH BID Fluticasone Propionate (Flovent Hfa), 1 PUFFS INH BID Fluticasone Propionate (Nasal) (Flonase Allergy Relief), 2 SPRAY NA QAM Gabapentin (Neurontin), 300 MG PO QID Tiotropium [place] (Spiriva Respimat), 2 PUFF INH DAILY Scheduled PRN Albuterol Hfa (Ventolin Hfa), 2 PUFFS INH Q4 PRN for SOB/Wheezing Loratadine (Claritin), 10 MG PO DAILY PRN for allergies Lorazepam (Ativan), 0.5 MG PO AMHS PRN for Anxiety Allergies Coded Allergies: Molds & Smuts (Verified Allergy, Intermediate, NASAL STUFFINESS,EYES WATER ,BREATHING GETS WORSE, 07/28/17) POLLEN (Verified Allergy, Intermediate, WATERY EYES,COUGHING,INCREASED REPIRATORY PROBLEMS, 07/28/17) Cat Dander (Verified Allergy, Unknown, unk, 07/28/17) NO KNOWN DRUG ALLERGIES (Verified Allergy, Unknown, ., 07/28/17) Physical Exam Vital Signs Date Time Temp Pulse Resp B/P (MAP) Pulse Ox O2 Delivery O2 Flow Rate FiO2 07/28/17 07:38 74 07/28/17 07:34 72 20 149/83 94 07/28/17 07:34 95 Room Air 07/28/17 06:43 36.6 95 28 133/88 96 Room Air Physical Exam GENERAL: Awake, alert, well-appearing, NAD. Wearing glasses. HENT: Normocephalic, atraumatic. EYES: Normal conjunctiva. Sclera non-icteric. PERRL. No anisocoria. NECK: Supple. No nuchal rigidity. FROM. Non-stridulous. RESPIRATORY: CTAB, no rhonchi, wheezing, crackles. Tachypneic. CARDIAC: RRR, no MRG ABDOMEN: Soft, NTND, BS+ MSK: No chest wall TTP, no LE edema. Negative Homans sign. NEURO: GCS 15, CN 2-12 intact, moves all 4s on command SKIN: No rash or jaundice noted. Medical Decision & Procedures ER Provider Diagnostic Interpretation: Radiology results as stated below per my review and radiologist interpretation: CHEST ONE VIEW PORTABLE FINDINGS: A sclerotic density within the posterior left fifth rib is unchanged. There is no pneumothorax or pleural effusion. Linear left basilar opacity suggestive atelectasis. There is no evidence for pulmonary edema. Cardiac size is normal. Mediastinal contours are normal. IMPRESSION: No acute cardiopulmonary findings. Electronically signed by: Benja Kerr M.D. 07/28/2017 7:22 AM Laboratory Results 07/28/17 07:08 Red Blood Count 5.38, Mean Corpuscular Volume 90.0, Mean Corpuscular Hemoglobin 32.5, Mean Corpuscular Hemoglobin Concent 36.2, Mean Platelet Volume 10.2, Neutrophils (%) (Auto) 72.7, Lymphocytes (%) (Auto) 18.6, Monocytes (%) (Auto) 6.4, Eosinophils (%) (Auto) 1.5, Basophils (%) (Auto) 0.5, Neutrophils # (Auto) 13.03, Lymphocytes # (Auto) 3.33, Monocytes # (Auto) 1.14, Eosinophils # (Auto) 0.27, Basophils # (Auto) 0.09 07/28/17 07:08 Test 07/28/17 07:08 White Blood Count 17.91 K/uL (4.8-10.8) Red Blood Count 5.38 M/uL (4.7-6.1) Hemoglobin 17.5 g/dL (14.0-18.0) Hematocrit 48.4 % (42-52) Mean Corpuscular Volume 90.0 fL (80-100) Mean Corpuscular Hemoglobin 32.5 pg (25-34) Mean Corpuscular Hemoglobin Concent 36.2 g/dl (32-36) Platelet Count 273 K/uL (130-400) Mean Platelet Volume 10.2 fL (7.4-10.4) Neutrophils (%) (Auto) 72.7 % Lymphocytes (%) (Auto) 18.6 % Monocytes (%) (Auto) 6.4 % Eosinophils (%) (Auto) 1.5 % Basophils (%) (Auto) 0.5 % Neutrophils # (Auto) 13.03 K/uL (1.4-6.5) Lymphocytes # (Auto) 3.33 K/uL (1.2-3.4) Monocytes # (Auto) 1.14 K/uL (0.11-0.59) Eosinophils # (Auto) 0.27 K/uL (0-0.5) Basophils # (Auto) 0.09 K/uL (0-0.2) RDW Standard Deviation 44.2 fL (36.4-46.3) RDW Coefficient of Variation 13.5 % (11.5-14.5) Immature Granulocyte % (Auto) 0.3 % Immature Granulocyte # (Auto) 0.05 K/uL (0.00-0.02) Anion Gap 7.0 mmol/L (3-11) Est Creatinine Clear Calc Drug Dose 106.4 ml/min Estimated GFR () 112.6 Estimated GFR (Non- 97.2 BUN/Creatinine Ratio 6.2 (10-20) Calcium Level 9.0 mg/dl (8.5-10.1) Troponin I < 0.015 ng/ml (0-0.045) Pro-B-Type Natriuretic Peptide 26 pg/ml (0-900) Laboratory results reviewed by me ECG Per My Interpretation Indication: SOB/dyspnea Rate (beats per minute): 74 Rhythm: normal sinus Findings: no ectopy, other (Normal intervals. Normal axis. No STS changes or TWI. ) ED Course 0651: The patient was evaluated in room B4B. A complete history and physical exam was performed. 0758: I reevaluated the patient. He feels mildly improved. He denies suicidal ideation or homicidal ideation. The patient declined to see the psychiatric protective services case worker. He has follow-up with psychiatry in two days. Discussed results and discharge instructions: he verbalized understanding and agreement. The patient is ready for discharge. Medical Decision Nursing notes reviewed. Ancillary studies and prior records reviewed. The patient is a 52 year old white male with a past medical history of asthma, hepatitis C, paranoid schizophrenia, depression, fibromyalgia, and rheumatoid arthritis who presents to the ED with a cc of intermittent "panic attacks" beginning 1-2 years ago. Differential diagnosis: Etiologies such as anxiety, infections, reactive airway disease, pneumonia, pneumothorax, COPD, CHF, cardiac ischemia, pulmonary embolism, musculoskeletal, gastrointestinal, as well as others were entertained. Patient was seen and evaluated the bedside. Patient does have a prior history of smoking as well as paranoid schizophrenia. Patient states he has been having anxiety over the last year some associated shortness of breath. Patient feels that the shortness of breath is related to the anxiety. Patient states that he did have a recent change in his medications as he was on Abilify and now takes Invega. Patient denies any lower extremity swelling or exertional symptoms. The patient again does have a significant smoking history but denies any chest pain. Patient did have blood work completed, EKG, troponin, chest x-ray. The patient was given 1 mg p.o. and Ativan. EKG without ischemic changes and an undetectable troponin. Chest x-ray shows no evidence of focal consolidation, pneumothorax, pleural effusion. Patient did have white blood cell count of 17,000. Patient is afebrile, normal vital signs. Upon reassessment the patient was feeling improved. The patient did refuse Ativan. The patient states that he did have follow-up with a psychiatrist in 2 days and would like to see them. Patient was counseled on smoking cessation. Patient was told return if any worsening symptoms. Heart score less than 4 less likely ACS. PE RC positive given the patient's age however well score of 0 less likely PE. Patient was given strict follow-up, discharge, and return precautions. All questions were answered. Patient was deemed suitable for outpatient follow-up at this time. Patient agreed with the plan of care and was safely discharged home. Medication Reconcilliation Current Medication List: was personally reviewed by me Blood Pressure Screening Patient's blood pressure: Elevated blood pressure Blood pressure disposition: Elevated BP felt to be situational Impression Primary Impression: Acute anxiety Additional Impressions: SOB (shortness of breath) Encounter for smoking cessation counseling Scribe Attestation The scribe's documentation has been prepared under my direction and personally reviewed by me in its entirety. I confirm that the note above accurately reflects all work, treatment, procedures, and medical decision making performed by me. Departure Information Dispostion Home / Self-Care Referrals Trisha Kerr M.D. (PCP) Patient Instructions ED Smoking Cessation, [facility] Additional Instructions Please return to the emergency department if you have worsening or recurrent symptoms not amenable to at-home treatment. Please call for a follow-up appointment with her primary care physician. Please take your medications as prescribed. If you have other concerns and/or complaints please feel free to also call your primary care physician's office or return the ED for further evaluation, management, and treatment. Consider smoking cessation. Take your medications as prescribed. You have been examined and treated today on an emergency basis only. This is not a substitute for, or an effort to provide, complete comprehensive medical care. It is impossible to recognize and treat all injuries or illnesses in a single emergency department visit. It is therefore important that you follow up closely with [facility], your PCP, and/or your specialist(s). Call as soon as possible for an appointment. Thank you for your time and consideration. I look forward to speaking with you again soon. Please don't hesitate to call us if you have any questions. Problem Qualifiers
[2017-07-28] MEDS ORDERED: GABA100C13 PO (07:05)
[2017-07-28] MEDS ORDERED: ADVIN25/60 INH (07:05)
[2017-07-28 07:17] LABS: BASO % 0.5 %; BASO ABS # 0.09 K/uL (0-0.2); EOS % 1.5 %; EOS ABS # 0.27 K/uL (0-0.5); HEMATOCRIT 48.4 % (42-52); HEMOGLOBIN 17.5 g/dL (14.0-18.0); IG# 0.05 K/uL (0.00-0.02); LYMPH % 18.6 %; LYMPH ABS # 3.33 K/uL (1.2-3.4); MEAN CORPUSCULAR HEMOGLOBIN 32.5 pg (25-34); MEAN CORPUSCULAR HGB CONC 36.2 g/dl (32-36); MEAN PLATELET VOLUME 10.2 fL (7.4-10.4); MONO % 6.4 %; MONO ABS # 1.14 K/uL (0.11-0.59); NEUT % 72.7 %; NEUT ABS # 13.03 K/uL (1.4-6.5); PLATELET COUNT 273 K/uL (130-400); RED CELL DISTRIBUTION WIDTH CV 13.5 % (11.5-14.5); RED CELL DISTRIBUTION WIDTH SD 44.2 fL (36.4-46.3); WHITE BLOOD COUNT 17.91 K/uL (4.8-10.8)
--- NOTE | 2017-07-28 07:24 | DIAGNOSTIC IMAGING REPORT ---
CHEST ONE VIEW PORTABLE CLINICAL HISTORY: Chest pain. COMPARISON STUDY: Chest radiograph February 20, 2017. FINDINGS: A sclerotic density within the posterior left fifth rib is unchanged. There is no pneumothorax or pleural effusion. Linear left basilar opacity suggestive atelectasis. There is no evidence for pulmonary edema. Cardiac size is normal. Mediastinal contours are normal. IMPRESSION: No acute cardiopulmonary findings. Electronically signed by: Benja Kerr M.D. 07/28/2017 7:22 AM Dictated Date/Time: 07/28/2017 7:21 AM
[2017-07-28 07:33] LABS: BLOOD UREA NITROGEN 6 mg/dl (7-18); CARBON DIOXIDE 24 mmol/L (21-32); GLUCOSE 109 mg/dl (70-99); POTASSIUM 3.9 mmol/L (3.5-5.1); SODIUM 139 mmol/L (136-145)
[2017-07-28 07:34] VITALS: BP 149/83; O2SAT 94; O2SAT 95
[2017-07-28 07:38] VITALS: PULSE 74
== END 2017-07-28 08:00 | disposition home or self-care (01) ==
LOC: C.EDB 06:41
DX: F41.9 Anxiety disorder, unspecified (principal); Z71.6 Tobacco abuse counseling; F17.200 Nicotine dependence, unspecified, uncomplicated; Z86.59 Personal history of other mental and behavioral disorders; J45.909 Unspecified asthma, uncomplicated; M79.7 Fibromyalgia; Z79.82 Long term (current) use of aspirin; Z91.048 Other nonmedicinal substance allergy status